=== PATIENT | female | born 1960 | race Caucasian/White ===

== ENCOUNTER 2017-09-02 11:54 | Inpatient (IN) | payer BC, OTHER ==
[2017-09-01 14:27] VITALS: BMI 38.1
[~2017-09-02 11:54] MED LIST: BUPIVACAINE HCL/PF 0.5% (5MG/ML) 10 ML VIAL IJ ONE
[2017-09-02] MEDS ORDERED: ROPIVACAINE HCL 0.5% 30ML VIAL ONE (13:30)
[2017-09-02] MEDS ORDERED: MIDAZOLAM HCL 2 MG/2 ML SINGLE DOSE VIAL ONE ×3 (13:58→14:34)
[2017-09-02] MEDS ORDERED: PROPOFOL 20 ML ONE (14:34)
[2017-09-02] MEDS ORDERED: DEXAMETHASONE SOD PHOSPHATE 4 MG/1 ML VIAL ONE ×2 (14:34→15:27)
[2017-09-02] MEDS ORDERED: fentaNYL CITRATE 250 MCG/5 ML VIAL ONE (14:34)
[2017-09-02] MEDS ORDERED: LIDOCAINE HCL/PF 2% SDV 5ML VIAL ONE (14:34)
[2017-09-02] MEDS ORDERED: ROCURONIUM BROMIDE 50 MG/5 ML VIAL ONE (14:34)
[2017-09-02] MEDS ORDERED: NEOSTIGMINE METHYLSULFATE 0.5 MG/ML - 10 ML MDV ONE ×2 (14:53→16:25)
[2017-09-02] MEDS ORDERED: GLYCOPYRROLATE 0.2 MG/1 ML VIAL ONE ×2 (14:54→16:25)
[2017-09-02] MEDS ORDERED: SODIUM CHLORIDE 0.9% P/F 10 ML VIAL IJ ONE (15:25)
[2017-09-02] MEDS ORDERED: ceFAZolin SODIUM 1 GM VIAL ONE (15:25)
[2017-09-02] MEDS ORDERED: ceFAZolin SODIUM 1 GM VIAL IVPB ONE (15:26)
[2017-09-02] MEDS ORDERED: BUPIVACAINE HCL/PF 0.5% (5MG/ML) 10 ML VIAL IJ ONE (16:04)
[2017-09-02] MEDS ORDERED: ONDANSETRON 4 MG/2 ML VIAL IVPUSH PRN (16:22)
[2017-09-02] MEDS ORDERED: PROMETHAZINE HCL 25 MG/1 ML VIAL IVPUSH PRN (16:22)
[2017-09-02] MEDS ORDERED: LACTATED RINGERS SOLUTION 1,000 ML IV SCH (16:30)
--- NOTE | 2017-09-02 16:43 | HP ---
History & Physical Update - History History: No Change - Physical Physical: No Change - Assessment Assessment: No Change - Plan Plan: No Change (Initial H&P is complete and located in pateint's chart. No new complaints or medications.)
--- NOTE | 2017-09-02 16:45 | OP ---
Operative Note - Note: Operative Date: 09/02/17 Pre-Operative Diagnosis: Morbid obesity Operation: Laparoscopic vertical sleeve gastrectomy, liver biopsy, egd Post-Operative Diagnosis: Same as Pre-op Surgeon: Geoff Díaz Maintenance Worker Municipal: Chris Sloan Anesthesiologist/FOUNDRY WORKER APPRENTICE: Remy Cazares Anesthesia: General Specimens Removed: liver wedge Estimated Blood Loss (mls): 30 Fluid Volume Replaced (mls): 1,000 Operative Report Dictated: Yes
[2017-09-02] MEDS ORDERED: HYDROmorphone HCL CARPU-JECT 1 MG/1 ML DISP.SYRIN IVPB PRN (16:46)
--- NOTE | 2017-09-02 16:46 | SURG ---
Surgery Individualized Education Plan Aide Note Individualized Education Plan Aide: Chris Sloan PA-C Date of Service: 09/02/17 Diagnosis: Morbid obesity Procedure: Laparoscopic vertical sleeve gastrectomy, liver biopsy, egd I was present for the entirety of the operative procedure. For further detail, please refer to operative report. Visit type - Case Type Case Type: Scheduled - New patient This patient is new to me today: Yes Date on this admission: 09/02/17
[2017-09-02] MEDS: ONDANSETRON 4 MG/2 ML VIAL IVPUSH SCH ×2 (16:50→22:54)
[2017-09-02] MEDS: METOCLOPRAMIDE HCL INJECTION 10 MG/2 ML VIAL IVPUSH SCH ×2 (17:00→21:31)
[2017-09-02] MEDS ORDERED: PROMETHAZINE HCL 25 MG/1 ML VIAL ONE (17:08)
[2017-09-02] MEDS: ACETAMINOPHEN 1000 MG/100 ML VIAL (NON FORMULARY) IVPB SCH ×2 (17:15→17:20)
--- NOTE | 2017-09-02 17:17 | SPEC ---
DATE OF OPERATION: 09/02/2017 SURGEON: Geoff Díaz MD CHRONOGRAPH OPERATOR: HEVER Quan PREOPERATIVE DIAGNOSES: 1. Morbid obesity. 2. Sleep apnea. 3. Body mass index of 38.2. 4. Hypercholesterolemia. 5. Hypertension. POSTOPERATIVE DIAGNOSES: 1. Morbid obesity. 2. Sleep apnea. 3. Body mass index of 38.2. 4. Hypercholesterolemia. 5. Hypertension. 6. Hepatomegaly. 7. Intraabdominal adhesions. PROCEDURES: 1. Laparoscopic vertical sleeve gastrectomy. 2. Laparoscopic wedge liver biopsy. 3. Esophagogastroduodenoscopy. 4. Laparoscopic lysis of adhesions. SPECIMEN: 1. Greater curvature of the stomach. 2. Wedge liver biopsy. ESTIMATED BLOOD LOSS: 30 mL DRAINS: None. ANESTHESIA: GET. BOUGIE: Size 36-Lithuanian. REASON FOR PROCEDURE: This is a 57-year-old female who presented to the office for weight loss options. After describing different options, decided to proceed with a laparoscopic, possible open vertical sleeve gastrectomy, possible liver biopsy, and upper endoscopy. The risks and benefits of the procedure were explained. RISKS AND BENEFITS: After describing the different options for weight loss management, the patient decided to proceed with a laparoscopic, possible open vertical sleeve gastrectomy. The patient was seen by the respective subspecialties and cleared for surgery. The risks and benefits of the procedure were explained. These included bleeding, infection, hernia, OK, DVT, PE, injury to surrounding structures including the liver, colon, bowel, spleen, esophagus, vessel injury, nerve injury, weight regain, gastric leak, staple line leak, sleeve leak, obstruction, vitamin deficiency, hair loss and as some of the possible complications. The patient understood and signed informed consent. DESCRIPTION OF PROCEDURE: The patient was placed supine on the operating room table. The patient underwent general endotracheal intubation. A Segovia catheter was inserted. The arms were brought out at 90 degrees and secured. A footboard was placed and the legs were secured laterally with padding. The abdomen was prepped and draped in the usual sterile fashion. A timeout was performed. An incision was made in the left upper quadrant and a Veress needle inserted. Pneumoperitoneum was established. Subsequently, the Veress needle was removed and a 12-mm trocar was placed. The laparoscopic camera was then inserted and inspection of the abdominal cavity was performed. An incision was then made in the supraumbilical area and a 15-mm trocar was placed under direct visualization. A 5-mm trocar was then placed in the right upper quadrant and a 5-mm trocar was placed below the left subcostal margin. A stab wound was made in the subxiphoid area and a Batool clamp inserted and removed to dilate the tract. A Zay liver retractor was inserted. The post was secured at the bedside by the nursing staff. The patient was placed in steep reverse Trendelenburg position and the Zay liver retractor was used to secure the liver towards the anterior abdominal wall. The pylorus was identified and 6 cm proximal to it, the lesser sac was entered using the LigaSure device. All lateral attachments to the greater curvature of the stomach, including the short gastric vessels, were ligated using the LigaSure device toward the gastrosplenic and gastrophrenic ligaments. Once this was done in its entirety, it was confirmed that all tubes within the nasal or oropharyngeal cavity, including a temperature probe, was removed by Anesthesia. The bougie was then inserted by Anesthesia. Transection of the stomach was then begun staying adjacent to the bougie but away from the angularis. Transection of the stomach was performed near the portion of the stomach where the lesser sac was entered. Two laparoscopic Endo-REMBERTO black krista were used at this location. Laparoscopic Endo REMBERTO purple staple loads were then used for the remainder of the transection until the greater curvature of the stomach was fully transected. This was done staying close to the bougie. Care was taken to stay away from the angle of His cephalad. The staple line was then inspected. Hemostasis was identified. A leak test was then performed. It was clamped distally to the staple line. Irrigation solution was placed in the left upper quadrant and air was insufflated by Anesthesia into the sleeve. No leaks were identified. No obstruction was identified. This was done through the entirety of the staple line. At this point, the irrigation solution was suctioned and again, hemostasis was noted. A wedge liver biopsy was then performed. The left lobe of the liver was identified and a portion of the edge was grasped. Using electrocautery, a wedge of the liver was excised. This was removed and sent off the field as specimen. Hemostasis at the site of the wedge liver biopsy was attained using electrocautery. The 15-mm supraumbilical trocar was then removed and the greater curvature specimen removed from the site using a sponge stick rudolph. The specimen was inspected and a Veress needle inserted. The specimen insufflated adequately and no leak was identified. The staple line was noted to be intact. A Estevan-Mila device was then used to temporarily close the fascia with a 0 Vicryl suture at the site. The 15-mm trocar was then reinserted and the 12-mm trocar in the left upper quadrant was removed. The fascia at this site was then closed using the Estevan-Mila device with a 0 Vicryl suture. Again, hemostasis was noted. The Zay liver retractor was then removed under direct visualization. Pneumoperitoneum was desufflated and the fascial sutures were secured. Hemostasis was noted at all incision sites and Marcaine was injected at all incision sites. All incision sites were closed using 4-0 Biosyn. Sterile dressings were applied. The patient tolerated the procedure well and was transferred to the recovery room in stable condition with the Segovia catheter intact. The patient was transferred to telemetry for further monitoring. In addition, please note that during the case, intraabdominal adhesions were noted in the left lateral abdominal wall. These needed to be taken down in order to place the 5-mm trocar. Careful lysis of adhesions was performed with a sharp laparoscopic scissor. Hemostasis was noted, and subsequently, the 5-mm trocar was able to be placed. In addition, upper endoscopy was performed. The endoscope was placed into the patient's mouth, esophagus, GE junction, and gastric pouch. The staple line was inspected. Hemostasis was noted. No leak or obstruction was noted. The stomach was suctioned and the endoscope removed. The patient tolerated the procedure well, was transferred to recovery room in stable condition. Rene [id number]
[2017-09-02] MEDS: FAMOTIDINE 20 MG/50 ML IVPB 20 MG/50 ML MG IVPB SCH (17:30)
[2017-09-02 17:33] LABS: HEMATOCRIT 38.3 % (32.4-45.2); HEMOGLOBIN 13.4 GM/dL (10.7-15.3); MCH 32.9 pg (25.7-33.7); MEAN PLT VOLUME 8.2 fl (7.5-11.1); PLATELET COUNT 208 K/MM3 (134-434); RBC 4.07 M/mm3 (3.60-5.2); RDW 13.2 % (11.6-15.6); WHITE BLOOD COUNT 8.1 K/mm3 (4.0-10.0)
[2017-09-02 18:29] LABS: ALBUMIN 3.5 g/dl (3.4-5.0); ANION GAP 5 (8-16); BLOOD UREA NITROGEN 15 mg/dL (7-18); CALCIUM 8.3 mg/dL (8.5-10.1); CHLORIDE 109 mmol/L (98-107); CO2 26 mmol/L (21-32); GLUCOSE,RANDOM 137 mg/dL (74-106); POTASSIUM 4.4 mmol/L (3.5-5.1); SODIUM 140 mmol/L (136-145)
[2017-09-02 18:33] LABS: ALK PHOS 74 U/L (45-117); BILIRUBIN,TOTAL 0.7 mg/dL (0.2-1.0); CREATININE 0.7 mg/dL (0.55-1.02); SGOT/AST 171 U/L (15-37); SGPT/ALT 152 U/L (12-78); TOT PROT 7.2 g/dl (6.4-8.2)
[2017-09-02] MEDS: SODIUM CHLORIDE 1,000 ML IV SCH (19:30)
[2017-09-02] MEDS: ENOXAPARIN NA (PORCINE) 40 MG/0.4 ML DISP.SYRIN SQ SCH (21:31)
[2017-09-02] MEDS: morphine SULFATE 4 MG/ML VIAL IVPUSH PRN (21:35)
[2017-09-03] MEDS: ACETAMINOPHEN 1000 MG/100 ML VIAL (NON FORMULARY) IVPB SCH ×3 (00:16→11:24)
[2017-09-03] MEDS: ONDANSETRON 4 MG/2 ML VIAL IVPUSH SCH ×5 (02:48→17:50)
[2017-09-03] MEDS: METOCLOPRAMIDE HCL INJECTION 10 MG/2 ML VIAL IVPUSH SCH ×3 (04:00→14:13)
[2017-09-03 07:27] LABS: HEMATOCRIT 33.3 % (32.4-45.2); HEMOGLOBIN 11.8 GM/dL (10.7-15.3); MCH 33.3 pg (25.7-33.7); MCHC 35.5 g/dl (32.0-36.0); MEAN CELL VOLUME 93.8 fl (80-96); MEAN PLT VOLUME 8.2 fl (7.5-11.1); PLATELET COUNT 183 K/MM3 (134-434); RBC 3.56 M/mm3 (3.60-5.2); RDW 13.1 % (11.6-15.6); WHITE BLOOD COUNT 6.6 K/mm3 (4.0-10.0)
--- NOTE | 2017-09-03 07:40 | PN ---
Addendum entered and electronically signed by Chris Sloan PA 09/03/17 11:06: UGI: negative leak/extravasation or outlet obstruction. POD #1 bariatric stage 1 diet ordered Original Note: Progress Note (short form) - Note Progress Note: 57yo F s/p Lap gastric sleeve POD #1. Pt seen bedside A&O x 3 complaining of mild abd pain. Pt denies n/v, fever, chills. Pt continues to be NPO. Last Vital Signs Temp Pulse Resp BP Pulse Ox 97.9 F 90 18 123/74 98 09/03/17 07:29 09/03/17 07:29 09/03/17 07:29 09/03/17 07:29 09/03/17 07:17 CBC, BMP 09/03/17 06:15 PE: General: A&O x 3 Abd: soft, nondistended, mild tenderness, incisions are clean with no erythema or discharge Ext: no calf tenderness. <Matt Murillo - Last Filed: 09/03/17 07:35> - Note Progress Note: POD 1 Pain controlled AVSS Abd soft UGI no leak/obstruction Clears Discharge home <Geoff Díaz - Last Filed: 09/03/17 18:16> Problem List - Problems (1) Morbid obesity due to excess calories Assessment/Plan: Assessment: S/p Lap gastric sleeve POD 1 Upper GI series this morning and if good advance to bariatric stage 1 diet encourage OOB, incentive spirometry Possible discharge home this evening after 5pm if doing well. Above plan discussed with Dr. Díaz and agrees Code(s): E66.01 - MORBID (SEVERE) OBESITY DUE TO EXCESS CALORIES <Matt Murillo - Last Filed: 09/03/17 07:35>
[2017-09-03 07:52] LABS: CHLORIDE 109 mmol/L (98-107); POTASSIUM 4.3 mmol/L (3.5-5.1); SODIUM 141 mmol/L (136-145)
[2017-09-03 08:02] LABS: ALBUMIN 3.1 g/dl (3.4-5.0); ALK PHOS 68 U/L (45-117); ANION GAP 8 (8-16); BILIRUBIN,TOTAL 0.6 mg/dL (0.2-1.0); BLOOD UREA NITROGEN 13 mg/dL (7-18); CALCIUM 7.7 mg/dL (8.5-10.1); CO2 24 mmol/L (21-32); CREATININE 0.6 mg/dL (0.55-1.02); GLUCOSE,RANDOM 128 mg/dL (74-106); SGOT/AST 147 U/L (15-37); SGPT/ALT 133 U/L (12-78); TOT PROT 6.5 g/dl (6.4-8.2)
[2017-09-03] MEDS: ENOXAPARIN NA (PORCINE) 40 MG/0.4 ML DISP.SYRIN SQ SCH (09:06)
[2017-09-03] MEDS: FAMOTIDINE 20 MG/50 ML IVPB 20 MG/50 ML MG IVPB SCH (09:06)
[2017-09-03] MEDS: morphine SULFATE 4 MG/ML VIAL IVPUSH PRN (09:57)
[2017-09-03] MEDS ORDERED: VENLAFAXINE HCL 75 MG E.R. CAPSULES (FP) PO SCH (10:00)
[2017-09-03] MEDS ORDERED: LOSARTAN POTASSIUM 50 MG TABLET (FP) PO SCH (10:00)
--- NOTE | 2017-09-03 12:23 | PN ---
Progress Note, Physician Chief Complaint: s/p gastric sleeve under general anesthesia with TAP block. History of Present Illness: post op day one - Current Medication List Current Medications: Active Medications Atorvastatin Calcium (Lipitor -) 10 mg PO HS [facility] Enoxaparin Sodium (Lovenox -) 40 mg SQ BID [facility] Last Admin: 09/03/17 09:06 Dose: 40 mg Famotidine/Sodium Chloride (Pepcid 20 Mg Premixed Ivpb -) 20 mg in 50 mls @ 100 mls/hr IVPB BID [facility] Last Admin: 09/03/17 09:06 Dose: 100 mls/hr Sodium Chloride (Normal Saline -) 1,000 mls @ 150 mls/hr IV ASDIR [facility] Last Admin: 09/02/17 19:30 Dose: 0 mls Losartan Potassium (Cozaar -) 100 mg PO DAILY [facility] Last Admin: 09/03/17 09:13 Dose: 100 mg Metoclopramide HCl (Reglan Injection -) 10 mg IVPUSH Q6H-IV [facility] Last Admin: 09/03/17 09:12 Dose: 10 mg Morphine Sulfate (Morphine Sulfate) 4 mg IVPUSH Q4H PRN PRN Reason: PAIN 1-5 Last Admin: 09/03/17 09:57 Dose: 4 mg Ondansetron HCl (Zofran Injection) 4 mg IVPUSH Q4H-IV [facility] Last Admin: 09/03/17 09:06 Dose: 4 mg Venlafaxine HCl (Effexor Xr -) 150 mg PO DAILY [facility] Last Admin: 09/03/17 09:07 Dose: 150 mg - Objective Vital Signs: Vital Signs Temperature 97.9 F 09/03/17 07:29 Pulse Rate 90 09/03/17 07:29 Respiratory Rate 18 09/03/17 07:29 Blood Pressure 123/74 09/03/17 07:29 O2 Sat by Pulse Oximetry (%) 98 09/03/17 07:17 Constitutional: Yes: Well Nourished Cardiovascular: Yes: WNL Respiratory: Yes: WNL Gastrointestinal: Yes: WNL Labs: CBC, BMP 09/03/17 06:15 09/03/17 06:15 Assessment/Plan Patient doing well, pain controlled, no nausea currently, no adverse anesthetic reaction. Dept of anesthesiology will sign off care at this time
[2017-09-03] MEDS: SODIUM CHLORIDE 1,000 ML IV SCH (17:50)
[2017-09-03 18:56] VITALS: BP 105/65; PULSE 85; TEMP 98.2
[2017-09-03] MEDS ORDERED: ATORVASTATIN CA 10 MG TABLET (FP) PO SCH (22:00)
--- NOTE | 2017-09-07 10:31 | PATH ---
Surgical Pathology Report Patient Name: GI SIDDIQUI Med. Rec. #: [id number] /Age/Gender: 1960 (Age: 57) / F Account: [id number] Location: 4 W TELEMETRY U Taken: 09/02/2017 Received: 09/03/2017 Reported: 09/07/2017 Physicians: Geoff Díaz M.D. Specimen(s) Received A: GREATER CURVATURE STOMACH B: LIVER BIOPSY Clinical History Morbid obesity Final Diagnosis A. GREATER CURVATURE STOMACH, LAPAROSCOPIC VERTICAL GASTRIC SLEEVE GASTRECTOMY: PORTION OF STOMACH WITH MILD CHRONIC GASTRITIS. IMMUNOSTAIN IS NEGATIVE FOR H. PYLORI ORGANISMS. NEGATIVE FOR INTESTINAL METAPLASIA. B. LIVER BIOPSY: LIVER TISSUE SHOWING SEVERE STEATOSIS (>80%); BALLOONING DEGENERATION WITH SHALONDA-DENK BODIES PRESENT. LOBULAR AND PORTAL INFLAMMATION IDENTIFIED. INCREASED PORTAL/MATTY-PORTAL AND PERIVENULAR FIBROSIS (TRICHROME STAIN). NO INCREASED IRON (IRON STAIN) DEPOSITS. 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 Electronically Signed Marguerite Kirby M.D. Gross Description A. Received in formalin, labeled "greater curvature stomach," is a 81 gram, 14.0 x 3.5 x 2.7 cm. portion of stomach with a stapled margin of resection. The serosa is moore-najera with minimal attached fat. The mucosa is moore-pink with normal folds. No mucosal masses are identified. Business Analysis Analyst sections are submitted in one cassette. B. Received in formalin labeled "liver biopsy," is a 2.4 x 1.5 x 1.2 cm moore, irregular portion of soft tissue, consistent with a portion of liver. Business Analysis Analyst sections are submitted in one cassette. DL/09/03/2017 saudi/09/03/2017
== END 2017-09-03 19:05 | disposition home or self-care (01) | DRG 621 ==
LOC: JSAMEDAYSX 11:54 → EDSTATUS 15:00 → J4W 19:30
PROVIDERS: ADMIT Surgery; ATTEND Surgery
PROC: 0DJ08ZZ Inspection of Upper Intestinal Tract, Via Natural or Artificial Opening Endoscopic (ICD-10-PCS; 2017-09-02)
PROC: 0DB64Z3 Excision of Stomach, Percutaneous Endoscopic Approach, Vertical (ICD-10-PCS; principal; 2017-09-02 15:00)
PROC: 0FB24ZX Excision of Left Lobe Liver, Percutaneous Endoscopic Approach, Diagnostic (ICD-10-PCS; 2017-09-02 15:00)
DX: E66.01 Morbid (severe) obesity due to excess calories (principal); Z68.38 Body mass index [BMI] 38.0-38.9, adult; R16.0 Hepatomegaly, not elsewhere classified; I10 Essential (primary) hypertension; G47.30 Sleep apnea, unspecified; E78.00 Pure hypercholesterolemia, unspecified
CPT/HCPCS: 36415; 74241-TC-FY; 80053; 85027; 86850; 86900; 86901; 88305-TC; 94010; 94760; J0131; J7030